=== PATIENT | male | born 1955 | race Caucasian/White ===

== ENCOUNTER 2016-05-20 06:47 | Day surgery (SDC) | payer OTHER ==
[~2016-05-20] VITALS: Ht 167.6 cm; Wt 78.6 kg
[2016-05-20] MEDS ORDERED: aspirin (08:23)
[2016-05-20] MEDS ORDERED: HCT (08:23)
[2016-05-20 08:36] VITALS: BP 156/79; PULSE 59; RESP 18; Ht 167.6 cm; Wt 78.6 kg
[2016-05-20] MEDS ORDERED: FENTAnyl 50 MCG/ML VIAL ONE (09:57)
[2016-05-20] MEDS ORDERED: MIDAZOLAM 1 MG/ML 2 ML INJ ONE ×2 (09:58)
[2016-05-20 10:18] VITALS: BP 133/86; PULSE 52; RESP 12
--- NOTE | 2016-05-20 13:34 | GILP ---
DATE OF PROCEDURE: 05/20/2016 NAME OF PROCEDURES: Colonoscopy and biopsy. SURGEON: Catalina Alatorre MD PREOPERATIVE DIAGNOSIS: Screening colonoscopy. POSTOPERATIVE DIAGNOSES: 1. Colonoscopy all the way to the cecum. 2. Right colon polyp was removed using the biopsy forceps. 3. Internal hemorrhoids. INDICATION FOR THE PROCEDURE: Mr. Stas Sylvester is a 60-year-old male patient who was scheduled for screening colonoscopy. The procedure and possible complications were well explained to the patient, he understood and conse nted to the procedure. DESCRIPTION OF PROCEDURE: Under the influence of fentanyl and Versed, the colonoscope was carefully introduced in the rectum and under direct vision, it was advanced all the way to the cecum. FINDINGS: The patient had a small right colon polyp and it was removed using the biopsy forceps. T he patient was noted to have internal hemorrhoids. He tolerated the procedure very well and there was no complication from the procedure. At the end o f the procedure, he was awake with stable vital signs and he was discharged home to the care of his family. IMPRESSION: 1. Colonoscopy all the way to the cecum. 2. Small right colon polyp was removed using the biopsy forceps. 3. Internal hemorrhoids. PLAN: Next screening colonoscopy in 10 years. Dictated By: CATALINA CALDERON/DOMINIC Conf#: [id number] DID#: [id number] CC: CATALINA ALATORRE MD;*[facility]*
== END 2016-05-20 10:59 | disposition home or self-care (01) ==
LOC: GIL 06:47
PROVIDERS: ATTEND Internal Medicine Gastroenterology
DX: Z12.11 Encounter for screening for malignant neoplasm of colon (principal); K63.5 Polyp of colon; K64.8 Other hemorrhoids
CPT/HCPCS: 45380; 88305; J2250; J3010